=== PATIENT | female | born 1935 | race Caucasian/White ===

== ENCOUNTER 2017-01-16 21:35 | Emergency (ER) | payer MEDICARE, MEDICAID ==
[2013-02-12 13:06] VITALS: BMI 38.3
[~2017-01-16 21:35] MED LIST: FORTAMET1000 MG/BO PO; GLUCOTROL 5 MG T5 MG PO; HYZAAR 50-12.51 TAB PO; NEURONTIN 100100 MG PO; NORCO 5/325 TAB1 TA1 PO; PRILOSEC20 MG PO; SYMBICORT 16010.2 GM INH; VYTORIN 10-40 M1 TAB PO
== END 2017-01-16 22:02 | disposition left against medical advice (07) ==
LOC: D.ER 21:35
DX: E11.649 Type 2 diabetes mellitus with hypoglycemia without coma (principal)